=== PATIENT | male | born 1960 | race Caucasian/White ===

== ENCOUNTER 2017-06-29 07:34 | Emergency (ER) | payer BC, OTHER ==
[2017-06-29 08:11] VITALS: BP 133/94
--- NOTE | 2017-06-29 08:34 | UC ---
Respiratory Complaint HPI - HPI Summary HPI Summary: 57 yo male with sinus pressure and pain x 1 week no fever bloody nasal d/c yesterday low energy - History of Current Complaint Chief Complaint: UCRespiratory Stated Complaint: SINUSES Time Seen by Provider: 06/29/17 08:33 Hx Obtained From: Patient Onset/Duration: Gradual Onset, Lasting Days Timing: Constant Severity Initially: Mild Severity Currently: Mild Pain Intensity: 3 Pain Scale Used: 0-10 Numeric Character: Cough: Nonproductive Aggravating Factors: Nothing Alleviating Factors: Nothing Associated Signs And Symptoms: Positive: URI, Nasal Congestion, Sinus Discomfort - Allergies/Home Medications Allergies/Adverse Reactions: Allergies Allergy/AdvReac Type Severity Reaction Status Date / Time No Known Allergies Allergy Verified 06/29/17 08:02 Home Medications: Home Medications Aspirin 81 mg CHEW TAB* [Aspirin Low Dose TAB*] 81 mg PO DAILY 06/29/17 [ History Confirmed 06/29/17] Dm/Acetaminophen/Doxylamine [Night Time Multi-Symptom] 1 cap PO PRN 06/29/17 [ History] Irbesartan 300 mg PO DAILY 06/29/17 [History Confirmed 06/29/17] Pantoprazole TAB (NF) [Protonix TAB (NF)] 40 mg PO DAILY 06/29/17 [History Confirmed 06/29/17] hydroCHLOROthiazide [Hydrochlorothiazide] 12.5 mg PO DAILY 06/29/17 [History Confirmed 06/29/17] PMH/Surg Hx/FS Hx/Imm Hx Previously Healthy: Yes Cardiovascular History: Hypertension - Surgical History Surgical History: Yes Surgery Procedure, Year, and Place: lasic eye - Family History Known Family History: Positive: Hypertension - Social History Alcohol Use: Occasionally Substance Use Type: None Smoking Status (MU): Never Smoked Tobacco Review of Systems Constitutional: Fatigue Skin: Negative Eyes: Negative ENT: Nasal Discharge, Sinus Congestion, Sinus Pain/Tenderness Respiratory: Cough Cardiovascular: Negative Gastrointestinal: Negative Genitourinary: Negative Motor: Negative Neurovascular: Negative Musculoskeletal: Negative Neurological: Negative Psychological: Negative Is Patient Immunocompromised?: No All Other Systems Reviewed And Are Negative: Yes Physical Exam Triage Information Reviewed: Yes Appearance: Well-Appearing, No Pain Distress, Well-Nourished Vital Signs: Initial Vital Signs Temp 97.1 F 06/29/17 08:05 Pulse 80 06/29/17 08:05 Resp 20 06/29/17 08:05 BP 133/94 06/29/17 08:05 Pulse Ox 97 06/29/17 08:05 Vital Signs Reviewed: Yes Eyes: Positive: Conjunctiva Clear ENT: Positive: Nasal congestion, Nasal drainage, Sinus tenderness - ethmoid > max. Negative: Tonsillar swelling, Tonsillar exudate, Muffled voice, Hoarse voice Dental Exam: Normal Neck: Positive: Supple, Nontender, No Lymphadenopathy Respiratory: Positive: Lungs clear, Normal breath sounds, No respiratory distress, No accessory muscle use Cardiovascular: Positive: RRR, No Murmur Musculoskeletal: Positive: ROM Intact, No Edema Neurological: Positive: Alert Psychological Exam: Normal Skin Exam: Normal UC Diagnostic Evaluation - Laboratory O2 Sat by Pulse Oximetry: 97 - normal/not hypoxic Respiratory Course/Dx - Differential Dx/Diagnosis Provider Diagnoses: acute sinusitis Discharge - Sign-Out/Discharge Documenting (check all that apply): Discharge - Discharge Plan Condition: Stable Disposition: HOME Prescriptions: Amoxicillin PO (*) [Amoxicillin 875 MG (*)] 875 mg PO BID #20 tab Patient Education Materials: Sinusitis (ED), Warm Compress or Soak (ED) Referrals: Glenda Rodrigez PA [Primary Care Provider] - 5 Days (if not better) Additional Instructions: saline nasal spray twice daily - Billing Disposition and Condition Condition: STABLE Disposition: HOME
== END 2017-06-29 08:58 | disposition home or self-care (01) ==
LOC: UCCORT 07:34
DX: J01.90 Acute sinusitis, unspecified (principal)
CPT/HCPCS: 99202; G0463